=== PATIENT | female | born 1995 | race Caucasian/White ===

== ENCOUNTER 2017-01-26 15:35 | Emergency (ER) | payer OTHER, MEDICAID ==
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
== END 2017-01-26 17:06 | disposition disaster alternative care site (69) ==
LOC: GACC 15:35
DX: Z04.1 Encounter for examination and observation following transport accident (principal); Z3A.25 25 weeks gestation of pregnancy; V89.2XXA Person injured in unspecified motor-vehicle accident, traffic, initial encounter
CPT/HCPCS: G0463